=== PATIENT | female | born 1965 | race Caucasian/White ===

== ENCOUNTER → 2020-11-13 | Outpatient (CLI) | payer BC ==
[~2020-11-13] MED LIST: ELIQUIS2.5 MG PO; FERROUS SULFAT325 MG PO; IBU800 MG PO; MULTIVITAMINS1 EAC1 PO; NORCO 10-325 T1 EACH PO; OXYBUTYNIN CHLO10 MG PO; VITAMIN D31250 MCG PO; ZYRTEC10 MG PO
[2020-11-13 12:38] LABS: HEMOGLOBIN 14.5 gm/dl (12.3-15.3); RED BLOOD COUNT 5.05 M/UL (4.00-5.10); WHITE BLOOD COUNT 5.5 K/UL (4.5-11.0)
[2020-11-13 13:01] LABS: BUN/CREATININE RATIO 26 (0-10)
== END ==
LOC: LAB 11:43
PROVIDERS: Nurse Practitioner Family
DX: K92.1 Melena (principal)
CPT/HCPCS: 36415; 80053; 85025